=== PATIENT | female | born 1950 | race Hispanic/Latino ===

== ENCOUNTER → 2018-11-17 | Outpatient (CLI) | payer MEDICARE ==
--- NOTE | 2018-11-17 20:28 | Diagnostic Imaging Report ---
MRI SPINE LUMBAR WO HISTORY: Low back pain, bilateral leg pain; lumbar spine radiculopathy COMPARISON: None. TECHNIQUE: Sagittal T1, sagittal T2, sagittal STIR, axial T2, coronal T2, and axial proton density weighted images of the lumbar spine were obtained without contrast. DISCUSSION: Number of non-rib bearing lumbar vertebral bodies: 5. Alignment: Normal lordosis. No scoliosis. Vertebrae: No fractures, infection or neoplasm. Conus medullaris: Normal, ends at approximately L1. Cauda equina: No masses or arachnoiditis. Posterior paraspinal muscles: Well preserved. No signal abnormalities. Soft tissues: No signal abnormalities. Mild multilevel lumbar disc degeneration is present. There are nonspecific minimal inflammatory endplate changes adjacent to a small L1 inferior endplate Schmorl's node. T12-L1: Disc bulge without significant canal or foraminal stenosis L1-L2: Disc bulge without significant canal or foraminal stenosis. L2-L3: Mild canal stenosis due to disc bulge and ligamentum flavum thickening. No significant foraminal stenosis. L3-L4: Mild to moderate canal stenosis due to disc bulge, superimposed 6 mm right paracentral disc extrusion (with 4 mm inferior migration), and ligamentum flavum thickening. The right lateral recess is effaced. The disc extrusion may abut the descending right L4 nerve root. No significant foraminal stenosis. L4-L5: Mild to moderate canal stenosis due to disc bulge and ligamentum flavum thickening. Mild bilateral foraminal stenoses due to disc bulge and facet arthrosis. There is mild periarticular edema along the left L4-L5 facet joint. L5-S1: Mild bilateral foraminal stenoses due to disc bulge and facet arthrosis. No significant canal stenosis. IMPRESSION: 1. Mild multilevel lumbar disc degeneration. Nonspecific minimal inflammatory endplate changes adjacent to a small L1 inferior endplate Schmorl's node. 2. Multilevel degenerative canal stenoses - mild to moderate at L3-L4 and L4-L5. 3. Associated 6 mm right L3-L4 paracentral disc extrusion (with 4 mm inferior migration) effaces the right lateral recess and may abut the descending right L4 nerve root. 4. Mild bilateral degenerative foraminal stenoses at L4-L5 and L5-S1. 5. Possible mild left L4-L5 facet synovitis. Signed by: Dr. Tomás Awan M.D. on 11/17/2018 8:25 PM
== END ==
LOC: MRI 14:54
PROVIDERS: ATTEND Family Medicine
DX: M54.16 Radiculopathy, lumbar region (principal)
CPT/HCPCS: 72148

== ENCOUNTER → 2019-06-06 | Outpatient (CLI) | payer MEDICARE ==
--- NOTE | 2019-06-06 13:07 | Diagnostic Imaging Report ---
EXAMINATION: Head CT HISTORY: Severe daily headache COMPARISON: None. TECHNIQUE: Multidetector axial images were obtained without contrast from the foramen magnum to the vertex . The images were reconstructed using brain and bone algorithms. Thin section brain images were reformatted into coronal and sagittal planes. Image quality: Motion/streaking artifact limits the evaluation of the skull base and posterior cranial fossa. Dose modulation, iterative reconstruction, and/or weight based adjustment of the mA/kV was utilized to reduce the radiation dose to as low as reasonably achievable. FINDINGS: Parenchyma: 1. No abnormal densities. 2. No mass or hemorrhage. No CT evidence of acute territorial vascular insult. Extra-axial spaces:No abnormal density. No extra-axial fluid collections . Mild prominence of the bilateral frontal subdural drain of the spaces without fluid collections or mass effect. Brain volume: Normal for age. Ventricles: No hydrocephalus or displacement. Arteries: No density suggestive of thrombus. Dural sinuses: No abnormal density. Extra-axial spaces: No abnormal density. Foramen magnum: No mass, Chiari malformation, or basilar invagination. Sella: No obvious mass. Paranasal/mastoid sinuses: Mild mucosal inflammatory thickening of the partially visualized ethmoidal sinuses, otherwise clear. Skull/Scalp: No lytic or blastic lesions. No fractures. IMPRESSION: No intracranial abnormalities. Mild mucosal thickening of the ethmoidal sinuses. Signed by: Dr. Kaila Barraza M.D. on 06/06/2019 1:04 PM
== END ==
LOC: CT 10:22
PROVIDERS: ATTEND Family Medicine
DX: R51 Headache (principal); R42 Dizziness and giddiness
CPT/HCPCS: 70450

== ENCOUNTER 2019-10-07 08:54 | Emergency (ER) | payer MEDICARE ==
[~2019-10-07] VITALS: Ht 154.9 cm; Wt 93.0 kg
--- OUTSIDE RECORDS SUMMARY | 2019-10-07 08:56 | XMS REPORT ---
[facility] Address Unknown Phone Unavailable Care Team Providers Care Diet Attendant Name Role Phone JEAN LAW Unavailable Unavailable Problems This patient has no known problems. Allergies, Adverse Reactions, Alerts This patient has no known allergies or adverse reactions. Medications This patient has no known medications. Results Test Description Test Time Test Comments Text Results Atomic Results Result Comments CT BRAIN WO 2019-06-06 13:02:00 [place] [address] Patient Name: TOSHIA BAUMANN MR #: [id number] : 1950 Age/Sex: 68/F Req #: [id number] [facility] Physician: Ordered by: ANI GRANADOS, JEAN Ag MD Report #: [id number] Location: CT Room/Bed: Procedure: [id number] CT/CT BRAIN WO Exam Date: 06/06/19 Exam Time: 1105 REPORT STATUS: Signed EXAMINATION: Head CT HISTORY: Severe daily headache COMPARISON: None. TECHNIQUE: Multidetector axial images were obtained without contrast from the foramen magnum to the vertex . The images were reconstructed using brain and bone algorithms. Thin section brain images were reformatted into coronal and sagittal planes. Image quality: Motion/streaking artifact limits the evaluation of the skull base and posterior cranial fossa. Dose m odulation, iterative reconstruction, and/or weight based adjustment of the mA/kV was utilized to reduce the radiation dose to as low as reasonably achievable. FINDINGS: Parenchyma: 1. No abnormal densities. 2. No mass or hemorrhage. No CT evidence of acute territorial vascular insult. Extra-axial spaces:No abnormal density. No extra-axial fluid collections . Mild prominence of the bilateral frontal subdural drain of the spaces without fluid collections or mass effect. Brain volume: Normal for age. Ventricles: No hydrocephalus or displace ment. Arteries: No density suggestive of thrombus. Dural sinuses: No abnormal density. Extra-axial spaces: No abnormal density. Foramen magnum: No mass, Chiari malformation, or basilar invagination. Sella: No obvious mass. Paranasal/mastoid sinuses: Mild mucosal inflammatory thickening of the partially visualized ethmoidal sinuses, otherwise clear. Skull/Scalp: No lytic or blastic lesions. No fractures. IMPRESSION: No intracranial abnormalities. Mild mucosal thickening of the ethmoidal sinuses. Signed by: Dr. Dereck Barraza M.D. on 06/06/2019 1:04 PM Dictated By: DERECK BARRAZA MD 1304 Transcribed By: HEAVEN on 06/06/19 1304 COPY TO: JEAN LAW MRI SPINE LUMBAR WO 2018-11-17 20:15:00 [place] [address] Patient Name: TOSHIA BAUMANN MR #: [id number] : 1950 Age/Sex: 68/F Req #: [id number] Adm Physician: Ordered by: JEAN LAW MD, MD Report #: [id number] Location: MRI Room/Bed: Procedure: [id number] MRI/MRI SPINE LUMBAR WO Exam Date: 11/17/18 Exam Time: 1500 REPORT STATUS: Signed MRI SPINE LUMBAR WO HISTORY: Low back pain, bilateral leg pain; lumbar spine radiculopathy COMPARISON: None. TECHNIQUE: Sagittal T1, sagittal T2, sagittal STIR, axial T2, coronal T2, and axial proton density weighted images of the lumbar spine were obtained without contrast. DISCUSSION: Number of non-rib bearing lumbar vertebral bodies: 5. Alignment: Normal lordosis. No scoliosis. Vertebrae: No fractures, infection or neoplasm. Conus medullaris: Normal, ends at approximately L1. Cauda equina: No masses or arachnoiditis. Posterior paraspinal muscles: Well preserved. No signal abnormalities. Soft tissues: No signal abnormalities. Mild multilevel lumbar disc degeneration is present. There are nonspecific minimal inflammatory endplate changes adjacent to a small L1 inferior endplate Schmorl's node. T12-L1: Disc bulge without significant canal or foraminal stenosis L1-L2: Disc bulge without significant canal or foraminal stenosis. L2-L3: Mild canal stenosis due to disc bulge and ligamentum flavum thickening. No significant foraminal stenosis. L3-L4: Mild to moderate canal stenosis due to disc bulge, superimposed 6 mm right paracentral disc extrusion (with 4 mm inferior migration), and ligamentum flavum thickening. The right lateral recess is effaced. The disc extrusion may abut the descending right L4 nerve root. No significant foraminal stenosis. L4-L5: Mild to moderate canal stenosis due to disc bulge and ligamentum flavum thickening. Mild bilateral foraminal stenoses due to disc bulge and facet arthrosis. There is mild periarticular edema along the left L4-L5 facet joint. L5-S1: Mild bilateral foraminal stenoses due to disc bulge and facet arthrosis. No significant canal stenosis. IMPRESSION: 1. Mild multilevel lumbar disc degeneration. Nonspecific minimal inflammatory endplate changes adjacent to a small L1 inferior endplate Schmorl's node. 2. Multilevel degenerative canal stenoses - mild to moderate at L3-L4 and L4-L5. 3. Associated 6 mm right L3-L4 paracentral disc extrusion (with 4 mm inferior migration) effaces the right lateral recess and may abut the descending right L4 nerve root. 4. Mild bilateral degenerative foraminal stenoses at L4-L5 and L5-S1. 5. Possible mild left L4-L5 facet synovitis. Signed by: Dr. Tomás Awan M.D. on 11/17/2018 8:25 PM Dictated By: TOMÁS AWAN MD 24 Transcribed By: HEAVEN on 11/17/182024 COPY TO: JEAN LAW UNILAT W/CXR 2018-06-23 12:42:00 [place] [address] Patient Name: TOSHIA BAUMANN MR #: [id number] : 1950 Age/Sex: 67/F Req #: [id number] Adm Physician: Ordered by: JEAN LAW MD, MD Report #: [id number] Location: [facility] Room/Bed: Procedure: [id number] DX/RIBS UNILAT W/CXR Exam Date: 06/23/18 Exam Time: 1200 REPORT STATUS: Signed PROCEDURE: X-RAY UNILATERAL RIBS WITH CHEST X-RAY COMPARISON: None. INDICATIONS: FALL, UPPER RIGHT SIDE FINDINGS: The lungs are well-inflated. No focal airspace consolidation, pleural effusion, or pneumothorax. Hazy opacity at the cardiac apex likely reflects prominent epicardial fat. Calcified granuloma in the right midlung. Normal heart size without pulmonary edema. No acute osseous abnormalities. No displaced right rib fracture or pneumothorax. CONCLUSION: no displaced right rib fracture or pneumothorax. Dictated by: Kvng Cortez M.D. on 06/23/2018 at 12:42 Electronically approved by: Kvng Cortez M.D. on 06/23/2018 at 12:42 Dictated By: KVNG CORTEZ MD 1242 Transcribed By: MARINA on 06/23/18 1242 COPY TO: JEAN LAW
[2019-10-07] MEDS ORDERED: VITAMIN D250000 UNIT (09:18)
[2019-10-07] MEDS ORDERED: VESICARE5 MG (09:18)
[2019-10-07] MEDS ORDERED: LEVOTHYROXINE112 MCG (09:18)
[2019-10-07] MEDS ORDERED: ALENDRONATE SOD70 MG (09:18)
[2019-10-07] MEDS ORDERED: METOCLOPRAMIDE HCL 10 MG/2ML VIAL IV ONE (09:45)
[2019-10-07] MEDS ORDERED: SODIUM CHLORIDE 0.9% 1000ML 1,000 ML IV SCH (09:45)
[2019-10-07] MEDS ORDERED: ACETAMIN/BUTALBITAL/CAFFEINE TAB PO ONE (09:45)
[2019-10-07 09:53] LABS: BASOPHILS % 0.2 % (0.0-1.0); EOSINOPHILS # (AUTO) 0.2 (0.0-0.4); EOSINOPHILS % 4.2 % (0.0-6.0); HEMATOCRIT 42.2 % (34.2-44.1); LYMPHOCYTES # (AUTO) 1.5 (1.0-3.2); LYMPHOCYTES % 34.2 % (18.0-39.1); MEAN CORPUSCULAR HEMOGLOBIN 31.3 pg (28-32); MEAN CORPUSCULAR HGB CONC 33.2 g/dL (31-35); MEAN CORPUSCULAR VOLUME 94.2 fL (81-99); MONOCYTES # (AUTO) 0.4 (0.2-0.8); MONOCYTES % 8.7 % (4.4-11.3); NEUTROPHILS # (AUTO) 2.4 (2.1-6.9); NEUTROPHILS % 52.5 % (38.7-80.0); PLATELET COUNT 308 x10e3/uL (140-360); RED BLOOD COUNT 4.48 x10e6/uL (3.6-5.1); RED CELL DISTRIBUTION WIDTH 13.2 % (11.7-14.4)
[2019-10-07] MEDS ORDERED: MECLIZINE HCL 12.5 MG TAB PO ONE (10:15)
[2019-10-07 10:19] LABS: ALANINE AMINOTRANSFERASE 24 IU/L (0-55); ALBUMIN 3.7 g/dL (3.5-5.0); ALKALINE PHOSPHATASE 56 IU/L (40-150); ANION GAP 14.4 mmol/L (8-16); BLOOD UREA NITROGEN 9 mg/dL (7-26); BUN/CREATININE RATIO 13 (6-25); CALCIUM 9.1 mg/dL (8.4-10.2); CARBON DIOXIDE 23 mmol/L (22-29); CHLORIDE 106 mmol/L (98-107); CREATINE KINASE 53 IU/L (29-168); CREATININE, SERUM 0.69 mg/dL (0.57-1.11); EST GLOMERULAR FILTRATION RATE > 60 ML/MIN (60-); GLUCOSE 105 mg/dL (74-118); POTASSIUM 4.4 mmol/L (3.5-5.1); SODIUM 139 mmol/L (136-145)
--- NOTE | 2019-10-07 10:28 | Diagnostic Imaging Report ---
KNEE RIGHT THREE VIEWS - 3 views HISTORY: Pain COMPARISON: None available. FINDINGS: See impression. IMPRESSION: No evidence of acute displaced fracture or dislocation of the right knee. Signed by: Dr. Itz Alcaraz MD on 10/07/2019 10:24 AM
[2019-10-07] MEDS ORDERED: DIPHENHYDRAMINE HCL INJ 50 MG/ML VIAL IV ONE (10:30)
--- NOTE | 2019-10-07 10:33 | Diagnostic Imaging Report ---
History:Dizziness Comparison studies:CT head 2018 Technique: Axial images were obtained from the skull base to the vertex. Coronal and sagittal images reconstructed from the axial data. Intravenous contrast: None Dose modulation, iterative reconstruction, and/or weight based adjustment of the mA/kV was utilized to reduce the radiation dose to as low as reasonably achievable. Findings: Scalp/skull: No abnormalities. Extra-axial spaces: No masses. No fluid collections. Brain sulci: Age-appropriate. Ventricles: Age-appropriate. No hydrocephalus. Parenchyma: No abnormal density. No masses, hemorrhage, acute or chronic cortical vascular insults. Sellar/suprasellar region: No abnormalities. Craniocervical junction: Patent foramen magnum. No Chiari one malformation. Incidental findings: None. Impression: No acute abnormalities. Stable from previous exam. Signed by: DR Yazan Jaramillo M.D. on 10/07/2019 10:30 AM
[2019-10-07] MEDS ORDERED: MECLIZINE HCL12.5 MG PO (11:04)
[2019-10-07] MEDS ORDERED: ZOFRAN4 MG SL (11:04)
[2019-10-07] MEDS ORDERED: ULTRAM50 MG PO (11:04)
[2019-10-07] MEDS ORDERED: FIORICET 50-301 EACH PO (11:04)
[2019-10-07 11:12] VITALS: BP 165/77
== END 2019-10-07 11:22 | disposition home or self-care (01) ==
LOC: ER 08:54
DX: G43.111 Migraine with aura, intractable, with status migrainosus (principal); G44.89 Other headache syndrome; M25.561 Pain in right knee
CPT/HCPCS: 36415; 70450; 73562; 80053; 82550; 82553; 84484; 85025; 99284; J1200; J2765; J7030; J8597

== ENCOUNTER → 2021-05-06 | Outpatient (CLI) | payer MEDICARE ==
[~2021-05-06] MED LIST: ALENDRONATE SOD70 MG; FIORICET 50-301 EACH PO; LEVOTHYROXINE112 MCG; MECLIZINE HCL12.5 MG PO; ULTRAM50 MG PO; VESICARE5 MG; VITAMIN D250000 UNIT; ZOFRAN4 MG SL
== END ==
LOC: RAD 11:42
PROVIDERS: ATTEND Family Medicine
DX: M25.551 Pain in right hip (principal)

== ENCOUNTER → 2021-05-15 | Outpatient (CLI) | payer MEDICARE | LOC: MRI 07:12 | PROVIDERS: ATTEND Specialist | DX: M25.551 Pain in right hip (principal) ==

== ENCOUNTER 2021-05-27 11:00 | Outpatient (RCR) | payer MEDICARE ==
[~2021-05-27 11:00] MED LIST changes: -ALENDRONATE SOD70 MG; +ALENDRONATE SOD70 MG PO; +CALTRATE 600 W1 EACH PO; -LEVOTHYROXINE112 MCG; +LEVOTHYROXINE112 MCG PO; +NEURONTIN300 MG PO
== END 2021-05-28 ==
LOC: PT 11:00
PROVIDERS: ATTEND Specialist
DX: M70.61 Trochanteric bursitis, right hip (principal); M54.9 Dorsalgia, unspecified; E66.01 Morbid (severe) obesity due to excess calories; Z68.41 Body mass index [BMI] 40.0-44.9, adult

== ENCOUNTER → 2021-06-26 | Outpatient (CLI) | payer MEDICARE ==
[~2021-06-26] MED LIST changes: +IOPAMIDOL 370 MG/ML 200 ML INFUS..BTL INJ ONE; +SODIUM CHLORIDE 0.9% 50ML 50 ML ONE
== END ==
LOC: CT 12:39
PROVIDERS: ATTEND Family Medicine
DX: R10.9 Unspecified abdominal pain (principal); K57.90 Diverticulosis of intestine, part unspecified, without perforation or abscess without bleeding
CPT/HCPCS: 74177; Q9967

== ENCOUNTER 2024-09-21 14:46 | Emergency (ER) | payer MEDICARE ==
[~2024-09-21] VITALS: Ht 154.9 cm; Wt 93.9 kg
[~2024-09-21 14:46] MED LIST changes: +CRESTOR10 MG PO; -IOPAMIDOL 370 MG/ML 200 ML INFUS..BTL INJ ONE; -SODIUM CHLORIDE 0.9% 50ML 50 ML ONE
[2024-09-21 15:20] VITALS: TEMP 98.4
[2024-09-21 15:47] LABS: BASOPHILS % 0.3 % (0.0-1.0); EOSINOPHILS # (AUTO) 0.1 (0.0-0.4); EOSINOPHILS % 1.9 % (0.0-6.0); HEMATOCRIT 45.3 % (34.2-44.1); HEMOGLOBIN 14.1 g/dL (12.0-16.0); LYMPHOCYTES # (AUTO) 1.7 (1.0-3.2); LYMPHOCYTES % 24.3 % (18.0-39.1); MEAN CORPUSCULAR HEMOGLOBIN 30.4 pg (28-32); MEAN CORPUSCULAR HGB CONC 31.1 g/dL (31-35); MEAN CORPUSCULAR VOLUME 97.6 fL (81-99); MONOCYTES # (AUTO) 0.5 (0.2-0.8); MONOCYTES % 7.3 % (4.4-11.3); NEUTROPHILS # (AUTO) 4.5 (2.1-6.9); NEUTROPHILS % 65.9 % (38.7-80.0); PLATELET COUNT 298 x10e3/uL (140-360); RED BLOOD COUNT 4.64 x10e6/uL (3.6-5.1); RED CELL DISTRIBUTION WIDTH 13.2 % (11.7-14.4); WHITE BLOOD COUNT 6.83 x10e3/uL (4.8-10.8)
[2024-09-21 15:59] LABS: ALBUMIN 4.1 g/dL (3.5-5.0); ALBUMIN/GLOBULIN RATIO 0.9 (0.8-2.0); ANION GAP 20.9 mmol/L (8-16); BILIRUBIN,TOTAL 0.8 mg/dL (0.2-1.2); CALCIUM 9.7 mg/dL (8.4-10.2); CREATININE, SERUM 0.75 mg/dL (0.57-1.11); POTASSIUM 3.9 mmol/L (3.5-5.1); TOTAL PROTEIN 8.5 g/dL (6.5-8.1)
[2024-09-21] MEDS ORDERED: IOPAMIDOL 370 MG/ML 100 ML INFUS..BTL INJ ONE (16:27)
[2024-09-21 16:43] LABS: BILIRUBIN,URINE NEGATIVE (NEGATIVE); CLARITY,URINE CLEAR (CLEAR); COLOR,URINE YELLOW (YELLOW); GLUCOSE, URINE NEGATIVE (NEGATIVE); KETONES,URINE 1+ (NEGATIVE); LEUKOCYTE ESTERASE ,URINE NEGATIVE (NEGATIVE); NITRITE,URINE NEGATIVE (NEGATIVE); PH,URINE 6.5 (5 - 7); PROTEIN,URINE DIPSTICK NEGATIVE (NEGATIVE); URINE UROBILINOGEN 0.2 mg/dL (0.2 - 1)
[2024-09-21] MEDS: ONDANSETRON HCL INJ 2MG/ML 2ML 2 MG/ML VIAL IV STA (17:04)
[2024-09-21] MEDS: SODIUM CHLORIDE 0.9% 1000ML 1,000 ML IV ONE (17:04)
[2024-09-21] MEDS: Morphine 2mg Syringe 2 MG/ML SYR IV ONE (17:05)
[2024-09-21 17:07] LABS: BACTERIA,URINE RARE /HPF; TRANSITIONAL EPI CELLS,URINE RARE
[2024-09-21 17:53] VITALS: PULSE 72; RESP 16
[2024-09-21] MEDS ORDERED: ULTRAM 50MG50 MG PO (17:55)
[2024-09-21] MEDS ORDERED: ONDANSETRON ODT4 MG PO (17:55)
[2024-09-21] MEDS ORDERED: AMOX TR-K CLV1 EAC2 PO (17:55)
[2024-09-21 19:09] VITALS: BP 160/89; PULSE 77; RESP 16; O2SAT 100
== END 2024-09-21 18:19 | disposition home or self-care (01) ==
LOC: ER 15:28
DX: R10.31 Right lower quadrant pain (principal); K57.32 Diverticulitis of large intestine without perforation or abscess without bleeding; E78.5 Hyperlipidemia, unspecified; E03.9 Hypothyroidism, unspecified; M81.8 Other osteoporosis without current pathological fracture
CPT/HCPCS: 36415; 74177; 80053; 81001; 83690; 85025; 99284; J2270; J2405; J7030; Q9967